=== PATIENT | male | born 1995 | race Hispanic/Latino ===

== ENCOUNTER 2018-08-24 18:39 | Emergency (ER) | payer SELFPAY ==
--- NOTE | 2018-08-24 20:19 | RAD REPORT ---
EXAM DESCRIPTION: RAD - Ankle Left 3 View -08/24/2018 8:11 pm CLINICAL HISTORY: Left ankle pain FINDINGS: No fracture or dislocation is seen.
--- NOTE | 2018-08-24 20:36 | RAD REPORT ---
EXAM DESCRIPTION: RAD - Shoulder Left 2 View - 08/24/2018 8:10 pm CLINICAL HISTORY: Left shoulder pain status post fall FINDINGS: No fracture or dislocation is seen.
--- NOTE | 2018-08-24 20:52 | EDPHYS ---
Physician Documentation [facility] Name: Shayne Blas Age: 23 yrs Sex: Male : 1995 Arrival Date: 08/24/2018 Time: 18:40 Bed 24 Private MD: Estuardo Alanis H ED Physician Deion Chen HPI: 08/24 20:55 This 23 yrs old Male presents to ER via Ambulatory with complaints of Fall kdr Injury, Shoulder Pain, Foot Pain. 20:55 Details of fall: The patient fell from an upright position, while standing, while kdr walking. Onset: The symptoms/episode began/occurred suddenly, yesterday. Associated injuries: The patient sustained Left shoulder and left ankle. Severity of symptoms: At their worst the symptoms were very mild, in the emergency department the symptoms are unchanged. The patient has not experienced similar symptoms in the past. The patient has not recently seen a physician. Historical: - Allergies: 19:27 No Known Allergies; aj - Home Meds: 19:27 None [Active]; aj - PMHx: 19:27 None; aj - PSHx: 19:27 None; aj - Immunization history: Last tetanus immunization: - up to date. - Social history:: Smoking status: Patient/guardian denies using tobacco. - Ebola Screening: : Patient negative for fever greater than or equal to 101.5 degrees Fahrenheit, and additional compatible Ebola Virus Disease symptoms Patient denies exposure to infectious person Patient denies travel to an Ebola-affected area in the 21 days before illness onset No symptoms or risks identified at this time. ROS: 20:55 Constitutional: Negative for fever, chills, and weight loss, Eyes: Negative for injury, kdr pain, redness, and discharge, Neck: Negative for injury, pain, and swelling, Cardiovascular: Negative for chest pain, palpitations, and edema, Respiratory: Negative for shortness of breath, cough, wheezing, and pleuritic chest pain, Abdomen/GI: Negative for abdominal pain, nausea, vomiting, diarrhea, and constipation, Back: Negative for injury and pain, : Negative for injury, bleeding, discharge, and swelling, Skin: Negative for injury, rash, and discoloration, Neuro: Negative for headache, weakness, numbness, tingling, and seizure activity. Psych: Negative for depression, anxiety, suicide ideation, homicidal ideation, and hallucinations, Allergy/Immunology: Negative for hives, rash, and allergies, Endocrine: Negative for neck swelling, polydipsia, polyuria, polyphagia, and marked weight changes, Hematologic/Lymphatic: Negative for swollen nodes, abnormal bleeding, and unusual bruising. 20:55 MS/extremity: Positive for Mild left lateral ankle swelling. The patient has been walking on it and is able to bear weight though with some discomfort. The left shoulder has minimal pain with abduction to 90 degrees or more. Exam: 20:55 Constitutional: This is a well developed, well nourished patient who is awake, alert, kdr and in no acute distress. Head/Face: Normocephalic, atraumatic. Eyes: Pupils equal round and reactive to light, extra-ocular motions intact. Lids and lashes normal. Conjunctiva and sclera are non-icteric and not injected. Cornea within normal limits. Periorbital areas with no swelling, redness, or edema. Chest/axilla: Normal chest wall appearance and motion. Nontender with no deformity. No lesions are appreciated. 20:55 Musculoskeletal/extremity: Left shoulder with minimal pain to anterior superior area with abduction to 90 degrees or more. The left ankle is also swollen laterally but intact ligaments. Vital Signs: 19:24 BP 143 / 80; Pulse 71; Resp 20; Temp 97.8; Pulse Ox 99% on R/A; Weight 95.25 kg; Height aj 5 ft. 10 in. (177.80 cm); 20:00 BP 138 / 72; Pulse 70; Resp 17; Pulse Ox 99% ; kr2 19:24 Body Mass Index 30.13 (95.25 kg, 177.80 cm) [place] Coma Score: 19:24 Eye Response: spontaneous(4). Verbal Response: oriented(5). Motor Response: obeys aj commands(6). Total: 15. Trauma Score (Adult): 19:24 Eye Response: spontaneous(1); Verbal Response: oriented(1); Motor Response: obeys aj commands(2); Systolic BP: > 89 mm Hg(4); Respiratory Rate: 10 to 29 per min(4); [place] Score: 15; Trauma Score: 12 MDM: 20:51 Patient medically screened. kdr 20:55 Data reviewed: vital signs, nurses notes, radiologic studies. Counseling: I had a kdr detailed discussion with the patient and/or guardian regarding: the historical points, exam findings, and any diagnostic results supporting the discharge/admit diagnosis, radiology results, the need for outpatient follow up. 08/24 19:28 Order name: XRAY Ankle LEFT 3 view; Complete Time: 20:45 aj 08/24 19:28 Order name: XRAY Shoulder LEFT 2 view; Complete Time: 20:45 aj 08/24 20:50 Order name: Nitesh wrap-joint: L:eft ankle; Complete Time: 20:50 kdr Administered Medications: No medications were administered Disposition: 08/24/18 20:51 Discharged to Home. Impression: Other slipping, tripping and stumbling and falls, Sprain of other ligament of left ankle, Sprain of unspecified ligament of left ankle, Pain in left shoulder. - Condition is Stable. - Discharge Instructions: Musculoskeletal Pain, Ankle Sprain, [id number], Shoulder Pain, [id number], Form - Return To Work. - Prescriptions for Tramadol 50 mg Oral Tablet - take 1 tablet by ORAL route every 8 hours as needed; 12 tablet. - Work release form, Medication Reconciliation Form, Thank You Letter form. - Follow up: Estuardo Alanis DO; When: 2 - 3 days; Reason: If symptoms return, Further diagnostic work-up, Recheck today's complaints, Continuance of care, Re-evaluation by your physician. - Problem is new. - Symptoms have improved. Signatures: Dispatcher [employer] EDPR Loreto Lerner RN RN aj Rittger, Kevin, MD MD kdr Reaves, Karey, RN RN kr2 Corrections: (The following items were deleted from the chart) 21:07 20:51 08/24/2018 20:51 Discharged to Home. Impression: Other slipping, tripping and kr2 stumbling and falls; Sprain of other ligament of left ankle; Sprain of unspecified ligament of left ankle; Pain in left shoulder. Condition is Stable. Forms are Medication Reconciliation Form, Thank You Letter, Antibiotic Education, Prescription Opioid Use. Follow up: Estuardo Alanis; When: 2 - 3 days; Reason: If symptoms return, Further diagnostic work-up, Recheck today's complaints, Continuance of care, Re-evaluation by your physician. Problem is new. Symptoms have improved. kdr
--- NOTE | 2018-08-24 20:52 | ER ---
Nurse's Notes [facility] Name: Shayne Blas Age: 23 yrs Sex: Male : 1995 Arrival Date: 08/24/2018 Time: 18:40 Bed 24 Private MD: Estuardo Alanis H Diagnosis: Other slipping, tripping and stumbling and falls;Sprain of other ligament of left ankle;Sprain of unspecified ligament of left ankle;Pain in left shoulder Presentation: 08/24 19:24 Presenting complaint: Patient states: Pain to left ankle and left shoulder after aj falling down 6 stairs. Ambulated with steady gait to triage. Care prior to arrival: None. Mechanism of Injury: Fall down 6 steps. Trauma event details: Injury occurred in the [facility], Injury occurred: at home. Injury occurred: August 24, 2018. 19:24 Acuity: HARRIETT 4 aj 19:24 Method Of Arrival: Ambulatory aj 20:00 Transition of care: patient was not received from another setting of care. Onset of kr2 symptoms was August 24, 2018. Risk Assessment: Do you want to hurt yourself or someone else? Patient reports no desire to harm self or others. Initial Sepsis Screen: Does the patient meet any 2 criteria? No. Patient's initial sepsis screen is negative. Does the patient have a suspected source of infection? No. Patient's initial sepsis screen is negative. Trauma Activation: Not Applicable Physician: ED Physician; Name: ; Notified At: ; Arrived At: Physician: General Surgeon; Name: ; Notified At: ; Arrived At: Physician: Radiology; Name: ; Notified At: ; Arrived At: Physician: Respiratory; Name: ; Notified At: ; Arrived At: Physician: Lab; Name: ; Notified At: ; Arrived At: Historical: - Allergies: 19:27 No Known Allergies; aj - Home Meds: 19:27 None [Active]; aj - PMHx: 19:27 None; aj - PSHx: 19:27 None; aj - Immunization history: Last tetanus immunization: - up to date. - Social history:: Smoking status: Patient/guardian denies using tobacco. - Ebola Screening: : Patient negative for fever greater than or equal to 101.5 degrees Fahrenheit, and additional compatible Ebola Virus Disease symptoms Patient denies exposure to infectious person Patient denies travel to an Ebola-affected area in the 21 days before illness onset No symptoms or risks identified at this time. Screenin:00 Abuse screen: Denies threats or abuse. Denies injuries from another. Nutritional kr2 screening: No deficits noted. Tuberculosis screening: No symptoms or risk factors identified. Fall Risk Fall in past 12 months (25 points). Primary Survey: 19:24 NO uncontrolled hemorrhage observed. Breathing/Chest: Respiratory pattern: regular, aj Respiratory effort: spontaneous, unlabored. Circulation: Skin color:. Disability Alert. 20:00 Exposure/Environment: There is no evidence of uncontrolled external bleeding. No kr2 obvious injuries are noted at this time. Reassessment Breathing/Chest Respiratory pattern Regular Respiratory effort Spontaneous Unlabored Breath sounds Clear Chest inspection Symmetrical. Assessment: 19:24 General: Appears in no apparent distress. comfortable, Behavior is calm, cooperative, aj appropriate for age. Pain: Complains of pain in anterior aspect of left shoulder, posterior aspect of left shoulder, left lateral ankle and anterior aspect of left ankle. Neuro: Level of Consciousness is awake, alert, obeys commands, Oriented to person, place, time, situation, Appropriate for age. Respiratory: Airway is patent Respiratory effort is even, unlabored, Respiratory pattern is regular, symmetrical. Derm: Skin is intact, is healthy with good turgor, Skin is pink, warm \T\ dry. normal. Musculoskeletal: Reports pain in anterior aspect of left shoulder, posterior aspect of left shoulder, left lateral ankle and anterior aspect of left ankle. 20:30 Reassessment: Patient appears in no apparent distress at this time. Patient and/or kr2 family updated on plan of care and expected duration. Pain level reassessed. Patient is alert, oriented x 3, equal unlabored respirations, skin warm/dry/pink. Patient states feeling better. Vital Signs: 19:24 BP 143 / 80; Pulse 71; Resp 20; Temp 97.8; Pulse Ox 99% on R/A; Weight 95.25 kg; Height aj 5 ft. 10 in. (177.80 cm); 20:00 BP 138 / 72; Pulse 70; Resp 17; Pulse Ox 99% ; kr2 19:24 Body Mass Index 30.13 (95.25 kg, 177.80 cm) aj Ivon Coma Score: 19:24 Eye Response: spontaneous(4). Verbal Response: oriented(5). Motor Response: obeys aj commands(6). Total: 15. Trauma Score (Adult): 19:24 Eye Response: spontaneous(1); Verbal Response: oriented(1); Motor Response: obeys aj commands(2); Systolic BP: > 89 mm Hg(4); Respiratory Rate: 10 to 29 per min(4); Palm Score: 15; Trauma Score: 12 ED Course: 18:40 Patient arrived in ED. sb2 18:41 Estuardo Alanis DO is Private Physician. sb2 19:25 Triage completed. aj 19:27 Arm band placed on right wrist. Patient placed in waiting room, Patient notified of aj wait time. 19:49 Deion Chen MD is Attending Physician. kdr 19:59 Miryam Pradhan, ALDO is Primary Nurse. kr2 20:00 Patient has correct armband on for positive identification. Bed in low position. Call kr2 light in reach. Side rails up X 1. Pulse ox on. NIBP on. Door closed. Warm blanket given. Head of bed elevated. 20:00 Patient maintains SpO2 saturation greater than 95% on room air. kr2 20:00 Thermoregulation: warm blanket given to patient. kr2 20:09 XRAY Ankle LEFT 3 view In Process Unspecified. EDMS 20:09 XRAY Shoulder LEFT 2 view In Process Unspecified. EDMS 20:50 Estuardo Alanis DO is Referral Physician. kdr 21:04 No provider procedures requiring assistance completed. Patient did not have IV access kr2 during this emergency room visit. 21:04 Nitesh wrap to left ankle. jp3 Administered Medications: No medications were administered Intake: 21:07 PO: 0ml; Total: 0ml. kr2 Output: 21:07 Urine: 0ml; Total: 0ml. kr2 Outcome: 20:00 Discharged to home ambulatory. kr2 20:00 Condition: good 20:00 Discharge instructions given to patient, Instructed on discharge instructions, follow up and referral plans. medication usage, Demonstrated understanding of instructions, follow-up care, medications, Prescriptions given X 1. 20:51 Discharge ordered by MD. kdr 21:07 Patient's length of stay was not longer than 2 hours. kr2 21:07 Patient left the ED. kr2 Signatures: Dispatcher [employer] EDMS Lerner, Loreto, RN RN aj Deion Chen MD MD kdr Miryam Pradhan RN RN kr2 Rosaura Briscoe2 Geraldo Kenny jp3
== END 2018-08-24 21:07 | disposition home or self-care (01) ==
LOC: ER 18:39
DX: S93.402A Sprain of unspecified ligament of left ankle, initial encounter (principal); M25.512 Pain in left shoulder; W10.8XXA Fall (on) (from) other stairs and steps, initial encounter
CPT/HCPCS: 99284

== ENCOUNTER 2019-07-01 21:24 | Emergency (ER) | payer SELFPAY ==
[2019-07-01] MEDS ORDERED: METHYLPREDNISOLONE 125 MG INJ ONE (22:11)
[2019-07-01] MEDS ORDERED: DIPHENHYDRAMINE 25 MG TAB/CAP ONE (22:16)
--- NOTE | 2019-07-01 22:41 | ER ---
Nurse's Notes [facility] Name: Shayne Blas Age: 23 yrs Sex: Male : 1995 Arrival Date: 07/01/2019 Time: 21:35 Bed 5 Private MD: Diagnosis: Dermatitis, unspecified Presentation: 07/01 21:36 Presenting complaint: Patient states: skin irritation, itching to bilateral lower legs ak1 for 1 week. Transition of care: patient was not received from another setting of care. Onset of symptoms is unknown. Risk Assessment: Do you want to hurt yourself or someone else? Patient reports no desire to harm self or others. Initial Sepsis Screen: Does the patient meet any 2 criteria? No. Patient's initial sepsis screen is negative. Does the patient have a suspected source of infection? No. Patient's initial sepsis screen is negative. Care prior to arrival: None. 21:36 Acuity: HARRIETT 4 ak1 21:36 Method Of Arrival: Ambulatory ak1 Triage Assessment: 21:38 General: Appears in no apparent distress. Behavior is cooperative, quiet. ak1 Historical: - Allergies: 21:38 No Known Allergies; ak1 - Home Meds: 21:38 None [Active]; ak1 - PMHx: 21:38 None; ak1 - PSHx: 21:38 None; ak1 - Immunization history:: Adult Immunizations unknown. - Social history:: Smoking status: Patient uses tobacco products, smokes one-half pack cigarettes per day, Patient uses alcohol, weekly. Patient/guardian denies using street drugs. - Ebola Screening: : No symptoms or risks identified at this time. Screenin:39 Abuse screen: Denies threats or abuse. Denies injuries from another. Nutritional lp1 screening: No deficits noted. Tuberculosis screening: No symptoms or risk factors identified. Fall Risk None identified. Assessment: 21:38 General: Appears in no apparent distress. Behavior is calm, cooperative, appropriate lp1 for age. Pain: Denies pain. Neuro: Level of Consciousness is awake, alert, obeys commands. Cardiovascular: Patient's skin is warm and dry. Respiratory: No deficits noted. GI: No deficits noted. : No deficits noted. EENT: No deficits noted. Derm: Rash noted that is itchy, red, raised, on bilateral lower legs. Musculoskeletal: No deficits noted. Vital Signs: 21:35 BP 146 / 110; Pulse 77; Resp 18; Temp 98.1; Pulse Ox 97% on R/A; Weight 90.72 kg (R); ak1 Height 5 ft. 10 in. (177.80 cm) (R); Pain 0/10; 21:35 Body Mass Index 28.70 (90.72 kg, 177.80 cm) ak1 ED Course: 21:35 Patient arrived in ED. bb 21:35 Arm band placed on Patient placed in an exam room, Patient notified of wait time. ak1 21:38 Denise Alvarez, RN is Primary Nurse. lp1 21:38 Triage completed. ak1 21:39 Patient has correct armband on for positive identification. lp1 21:39 No provider procedures requiring assistance completed. Patient did not have IV access lp1 during this emergency room visit. 22:05 Joe Franco MD is Attending Physician. tw4 Administered Medications: 22:21 Drug: SOLU-Medrol 125 mg Route: IM; Site: left deltoid; lp1 22:48 Follow up: Response: No adverse reaction lp1 22:22 Drug: Benadryl 50 mg Route: PO; lp1 22:48 Follow up: Response: No adverse reaction lp1 Outcome: 22:39 Discharge ordered by . tw4 22:48 Discharged to home ambulatory, with family. lp1 22:48 Condition: good 22:48 Discharge instructions given to patient, Instructed on discharge instructions, follow up and referral plans. medication usage, Demonstrated understanding of instructions, follow-up care, medications, Prescriptions given X 1. 22:49 Patient left the ED. lp1 Signatures: Analisa Pizano RN RN bb Denise Alvarez, RN RN lp1 Lisa Villagomez RN RN ak1 Joe Franco MD MD tw4
--- NOTE | 2019-07-01 22:41 | EDPHYS ---
Physician Documentation [facility] Name: Shayne Blas Age: 23 yrs Sex: Male : 1995 Arrival Date: 07/01/2019 Time: 21:35 Bed 5 Private MD: ED Physician Joe Franco HPI: 07/02 06:08 This 23 yrs old Male presents to ER via Ambulatory with complaints of rash. tw4 06:08 This 23 yrs old Male presents to ER via Ambulatory with complaints of rash. tw4 06:08 The patient's rash thought to be caused by allergies. The rash is located on the body tw4 diffusely. The rash can be described as papular. Onset: The symptoms/episode began/occurred last week. Associated signs and symptoms: Pertinent positives: itching, Pertinent negatives: None. The patient has not experienced similar symptoms in the past. Historical: - Allergies: 07/01 21:38 No Known Allergies; ak1 - Home Meds: 21:38 None [Active]; ak1 - PMHx: 21:38 None; ak1 - PSHx: 21:38 None; ak1 - Immunization history:: Adult Immunizations unknown. - Social history:: Smoking status: Patient uses tobacco products, smokes one-half pack cigarettes per day, Patient uses alcohol, weekly. Patient/guardian denies using street drugs. - Ebola Screening: : No symptoms or risks identified at this time. ROS: 07/02 06:08 Constitutional: Negative for fever, chills, and weight loss, Eyes: Negative for injury, tw4 pain, redness, and discharge, Cardiovascular: Negative for chest pain, palpitations, and edema, Respiratory: Negative for shortness of breath, cough, wheezing, and pleuritic chest pain, Abdomen/GI: Negative for abdominal pain, nausea, vomiting, diarrhea, and constipation, Back: Negative for injury and pain. Skin: Positive for rash. Exam: 06:08 Constitutional: This is a well developed, well nourished patient who is awake, alert, tw4 and in no acute distress. Head/Face: Normocephalic, atraumatic. Chest/axilla: Normal chest wall appearance and motion. Nontender with no deformity. No lesions are appreciated. Cardiovascular: Regular rate and rhythm with a normal S1 and S2. No gallops, murmurs, or rubs. Normal PMI, no JVD. No pulse deficits. Respiratory: Lungs have equal breath sounds bilaterally, clear to auscultation and percussion. No rales, rhonchi or wheezes noted. No increased work of breathing, no retractions or nasal flaring. Abdomen/GI: Soft, non-tender, with normal bowel sounds. No distension or tympany. No guarding or rebound. No evidence of tenderness throughout. Back: No spinal tenderness. No costovertebral tenderness. Full range of motion. MS/ Extremity: Pulses equal, no cyanosis. Neurovascular intact. Full, normal range of motion. Neuro: Awake and alert, GCS 15, oriented to person, place, time, and situation. Cranial nerves II-XII grossly intact. Motor strength 5/5 in all extremities. Sensory grossly intact. Cerebellar exam normal. Normal gait. 06:08 Skin: Appearance: normal except for affected area, contact dermatitis. Vital Signs: 07/01 21:35 BP 146 / 110; Pulse 77; Resp 18; Temp 98.1; Pulse Ox 97% on R/A; Weight 90.72 kg (R); ak1 Height 5 ft. 10 in. (177.80 cm) (R); Pain 0/10; 21:35 Body Mass Index 28.70 (90.72 kg, 177.80 cm) ak1 MDM: 22:05 Patient medically screened. tw4 07/02 06:08 Differential diagnosis: impetigo, varicella. Data reviewed: vital signs, nurses notes. tw4 Data interpreted: Pulse oximetry: Interpretation: normal. Counseling: I had a detailed discussion with the patient and/or guardian regarding: the historical points, exam findings, and any diagnostic results supporting the discharge/admit diagnosis. Special discussion: I discussed with the patient/guardian in detail that at this point there is no indication for admission to the hospital. It is understood, however, that if the symptoms persist or worsen the patient needs to return immediately for re-evaluation. Administered Medications: 07/01 22:21 Drug: SOLU-Medrol 125 mg Route: IM; Site: left deltoid; lp1 22:48 Follow up: Response: No adverse reaction lp1 22:22 Drug: Benadryl 50 mg Route: PO; lp1 22:48 Follow up: Response: No adverse reaction lp1 Disposition: 07/01/19 22:39 Discharged to Home. Impression: Dermatitis, unspecified. - Condition is Stable. - Discharge Instructions: Rash. - Prescriptions for Medrol (Jay) 4 mg Oral Tablets, Dose Pack - take 1 tablet by ORAL route as directed - follow package instructions; 1 packet. - Medication Reconciliation Form, Thank You Letter, Antibiotic Education, Prescription Opioid Use form. - Follow up: Private Physician; When: Upon discharge from the Emergency Department; Reason: Recheck today's complaints, Continuance of care. - Problem is new. - Symptoms have improved. Signatures: Denise Alvarez, RN RN lp1 Lisa Villagomez RN RN ak1 Joe Franco MD MD tw4 Corrections: (The following items were deleted from the chart) 22:49 22:39 07/01/2019 22:39 Discharged to Home. Impression: Dermatitis, unspecified. lp1 Condition is Stable. Forms are Medication Reconciliation Form, Thank You Letter, Antibiotic Education, Prescription Opioid Use. Follow up: Private Physician; When: Upon discharge from the Emergency Department; Reason: Recheck today's complaints, Continuance of care. Problem is new. Symptoms have improved. tw4
[2019-07-02 00:30] VITALS: BP 146/110; TEMP 98.1; O2SAT 97
== END 2019-07-01 22:49 | disposition home or self-care (01) ==
LOC: ER 21:24
DX: L30.9 Dermatitis, unspecified (principal); F17.210 Nicotine dependence, cigarettes, uncomplicated
CPT/HCPCS: 96372; 99283; J2930

== ENCOUNTER 2019-07-14 20:08 | Emergency (ER) | payer SELFPAY ==
[2019-07-14 21:18] LABS: Absolute Lymphocytes (CBC) 2.5 K/uL (0.7-4.9); Basophils % 0.5 % (0-1.3); Hematocrit 47.8 % (39.6-49.0); Lymphocytes % 18.9 % (15.3-44.8); MPV 7.5 fL (7.6-11.3); RBC Red Blood Cell Count 5.19 M/uL (4.33-5.43)
[2019-07-14 21:30] LABS: BUN Blood Urea Nitrogen 13 mg/dL (7-18); Bicarbonate 27 mmol/L (21-32); Glucose Level 93 mg/dL (74-106); Sodium Level 137 mmol/L (136-145)
--- NOTE | 2019-07-14 21:34 | EDPHYS ---
Physician Documentation [facility] Name: Shayne Blas Age: 24 yrs Sex: Male : 1995 Arrival Date: 07/14/2019 Time: 20:08 Bed 13 Private MD: ED Physician Tommy Teresa HPI: 07/14 20:43 This 24 yrs old Male presents to ER via Ambulatory with complaints of Anxiety. rn 20:43 The patient has shortness of breath at rest. Onset: The symptoms/episode began/occurred rn just prior to arrival. Duration: The symptoms are continuous, but are markedly better than the original presentation. The patient's shortness of breath is aggravated by nothing, is alleviated by nothing. Severity of symptoms: At their worst the symptoms were moderate in the emergency department the symptoms have improved. The patient has not experienced similar symptoms in the past. Reports was worrying about his health, states thinks has sleep apnea and was thinking about whether he would stop breathing at night, hasn't had a chance to see a physician, also smokes, got worried and felt like had an anxiety attack, has never had one like this, felt sob. Lasted about 2-3 minutes, resolved with deep breathing and trying to calm himself. No meds. Now at baseline. No famhx of early cardiac problems.. Historical: - Allergies: 20:27 No Known Allergies; aj1 - Home Meds: 20:27 None [Active]; aj1 - PMHx: 20:27 None; aj1 - PSHx: 20:27 None; aj1 - Immunization history:: Flu vaccine is not up to date. - Social history:: Smoking status: Patient uses tobacco products, smokes one pack cigarettes per day. - Ebola Screening: : Patient denies travel to an Ebola-affected area in the 21 days before illness onset. - Family history:: not pertinent. - Hospitalizations: : No recent hospitalization is reported. ROS: 20:43 Constitutional: Negative for fever, chills, and weight loss, Eyes: Negative for injury, rn pain, redness, and discharge, Neck: Negative for injury, pain, and swelling, Cardiovascular: Negative for chest pain, palpitations, and edema, Respiratory: Negative for cough, wheezing, and pleuritic chest pain, Abdomen/GI: Negative for abdominal pain, nausea, vomiting, diarrhea, and constipation, MS/Extremity: Negative for injury and deformity, Skin: Negative for injury, rash, and discoloration, Neuro: Negative for headache, weakness, numbness, tingling, and seizure. Exam: 20:43 Constitutional: This is a well developed, well nourished patient who is awake, alert, rn and in no acute distress. Head/Face: Normocephalic, atraumatic. Eyes: Pupils equal round and reactive to light, extra-ocular motions intact. Lids and lashes normal. Conjunctiva and sclera are non-icteric and not injected. Cornea within normal limits. Periorbital areas with no swelling, redness, or edema. ENT: No oral swelling Cardiovascular: Regular rate and rhythm with a normal S1 and S2. No gallops, murmurs, or rubs. Normal PMI, no JVD. No pulse deficits. Respiratory: Lungs have equal breath sounds bilaterally, clear to auscultation. No increased work of breathing, no retractions or nasal flaring. Abdomen/GI: Soft, non-tender MS/ Extremity: Pulses equal, no cyanosis. Neurovascular intact. Full, normal range of motion. Equal circumference. Neuro: Awake and alert, GCS 15, oriented to person, place, time, and situation. Cranial nerves II-XII grossly intact. Motor strength 5/5 in all extremities. Sensory grossly intact. Cerebellar exam normal. Normal gait. 21:11 ECG was reviewed by the Attending Physician. rn Vital Signs: 20:27 BP 163 / 94; Pulse 93; Resp 18; Temp 97.8; Pulse Ox 100% on R/A; Weight 90.72 kg (R); aj1 Height 5 ft. 10 in. (177.80 cm) (R); Pain 5/10; 21:31 BP 122 / 91; Pulse 87; Temp 98.4; Pulse Ox 98% ; ch2 20:27 Body Mass Index 28.70 (90.72 kg, 177.80 cm) aj1 MDM: 20:36 Patient medically screened. rn 21:31 Differential diagnosis: Anxiety Reaction Pneumothorax pulmonary edema, reactive airway rn disease. Data reviewed: vital signs, nurses notes, lab test result(s), EKG, radiologic studies, plain films, and as a result, I will discharge patient. Test interpretation: by ED physician or midlevel provider: ECG, plain radiologic studies, CXR negative for pneumothorax or acute infiltrate. Counseling: I had a detailed discussion with the patient and/or guardian regarding: the historical points, exam findings, and any diagnostic results supporting the discharge/admit diagnosis, lab results, radiology results, the need for outpatient follow up, to return to the emergency department if symptoms worsen or persist or if there are any questions or concerns that arise at home. Response to treatment: the patient's symptoms have resolved after treatment, the patient's condition has returned to base line, the patient is now symptom free, and as a result, I will discharge patient. Special discussion: I discussed with the patient/guardian in detail that at this point there is no indication for admission to the hospital. It is understood, however, that if the symptoms persist or worsen the patient needs to return immediately for re-evaluation. Based on the history and exam findings, there is no indication for further emergent testing or inpatient evaluation. I discussed with the patient/guardian the need to see the primary care provider for further evaluation of the symptoms. ED course: Recommend cessation of smoking and f/u with pcp/pulmonology for sleep study.. 07/14 20:42 Order name: CBC with Diff; Complete Time: 21:27 07/14 20:42 Order name: Basic Metabolic Panel; Complete Time: 21:31 07/14 20:42 Order name: XRAY Chest (1 view) 07/14 20:42 Order name: EKG; Complete Time: 20:43 07/14 20:42 Order name: EKG - Nurse/Tech; Complete Time: 21:10 07/14 20:42 Order name: IV Start; Complete Time: 21:04 rn EC:11 Rate is 74 beats/min. Rhythm is regular. QRS [place] is Normal. [place] interval is normal. QRS rn interval is normal. QT interval is normal. No Q waves. T waves are Normal. No ST changes noted. Clinical impression: Normal ECG. Interpreted by me. Reviewed by me. Administered Medications: No medications were administered Disposition: 07/14/19 21:32 Discharged to Home. Impression: Panic disorder [episodic paroxysmal anxiety] without agoraphobia, Sleep apnea, unspecified. - Condition is Stable. - Discharge Instructions: Panic Attacks, Sleep Studies. - Medication Reconciliation Form, Thank You Letter, Antibiotic Education, Prescription Opioid Use form. - Follow up: Private Physician; When: As needed; Reason: Recheck today's complaints, Re-evaluation by your physician. - Problem is new. - Symptoms have improved. Signatures: Dispatcher [employer] EDLiz Chase RN RN aj1 Tommy Teresa MD MD rn Hanna, Candace, RN RN ch2 Corrections: (The following items were deleted from the chart) 21:59 21:32 07/14/2019 21:32 Discharged to Home. Impression: Panic disorder [episodic ch2 paroxysmal anxiety] without agoraphobia; Sleep apnea, unspecified. Condition is Stable. Forms are Medication Reconciliation Form, Thank You Letter, Antibiotic Education, Prescription Opioid Use. Follow up: Private Physician; When: As needed; Reason: Recheck today's complaints, Re-evaluation by your physician. Problem is new. Symptoms have improved. rn
--- NOTE | 2019-07-14 21:34 | ER ---
Nurse's Notes [facility] Name: Shayne Blas Age: 24 yrs Sex: Male : 1995 Arrival Date: 07/14/2019 Time: 20:08 Bed 13 Private MD: Diagnosis: Panic disorder [episodic paroxysmal anxiety] without agoraphobia;Sleep apnea, unspecified Presentation: 07/14 20:26 Presenting complaint: Patient states: "I feel like I was having an anxiety attack aj1 earlier. My hands and face were tingling and it felt like I couldn't catch my breath. My mom told me to come to the hospital" Patient reports that he is feeling better now. Transition of care: patient was not received from another setting of care. Onset of symptoms was 2018. Risk Assessment: Do you want to hurt yourself or someone else? Patient reports no desire to harm self or others. Initial Sepsis Screen: Does the patient meet any 2 criteria? No. Patient's initial sepsis screen is negative. Does the patient have a suspected source of infection? No. Patient's initial sepsis screen is negative. Care prior to arrival: None. 20:26 Method Of Arrival: Ambulatory aj1 20:26 Acuity: HARRIETT 4 aj1 Triage Assessment: 20:27 General: Appears in no apparent distress. comfortable, Behavior is calm, cooperative, aj1 appropriate for age. Pain: Complains of pain in chest Pain currently is 4 out of 10 on a pain scale. Neuro: Level of Consciousness is awake, alert, obeys commands. Cardiovascular: Patient's skin is warm and dry. Respiratory: Airway is patent Respiratory effort is even, unlabored, Respiratory pattern is regular, symmetrical. Historical: - Allergies: 20:27 No Known Allergies; aj1 - Home Meds: 20:27 None [Active]; aj1 - PMHx: 20:27 None; aj1 - PSHx: 20:27 None; aj1 - Immunization history:: Flu vaccine is not up to date. - Social history:: Smoking status: Patient uses tobacco products, smokes one pack cigarettes per day. - Ebola Screening: : Patient denies travel to an Ebola-affected area in the 21 days before illness onset. - Family history:: not pertinent. - Hospitalizations: : No recent hospitalization is reported. Screenin:30 Abuse screen: Denies threats or abuse. Denies injuries from another. Nutritional ch2 screening: No deficits noted. Tuberculosis screening: No symptoms or risk factors identified. Fall Risk None identified. Assessment: 20:45 General: Appears in no apparent distress. comfortable, Behavior is calm, cooperative, ch2 appropriate for age. Pain: Denies pain. Neuro: Level of Consciousness is awake, alert, obeys commands, Oriented to person, place, time, situation, Appropriate for age. Cardiovascular: Heart tones S1 S2. Respiratory: Airway is patent Respiratory effort is even, unlabored, Respiratory pattern is regular, symmetrical, Breath sounds are clear bilaterally. GI: Abdomen is flat, non-distended. : No signs and/or symptoms were reported regarding the genitourinary system. EENT: No signs and/or symptoms were reported regarding the EENT system. Derm: Skin is intact. Musculoskeletal: Circulation, motion, and sensation intact. 21:31 Reassessment: Patient appears in no apparent distress at this time. No changes from [facility] previously documented assessment. Patient and/or family updated on plan of care and expected duration. Pain level reassessed. Patient is alert, oriented x 3, equal unlabored respirations, skin warm/dry/pink. Patient denies pain at this time. Vital Signs: 20:27 BP 163 / 94; Pulse 93; Resp 18; Temp 97.8; Pulse Ox 100% on R/A; Weight 90.72 kg (R); aj1 Height 5 ft. 10 in. (177.80 cm) (R); Pain 5/10; 21:31 BP 122 / 91; Pulse 87; Temp 98.4; Pulse Ox 98% ; ch2 20:27 Body Mass Index 28.70 (90.72 kg, 177.80 cm) aj1 ED Course: 20:08 Patient arrived in ED. ds1 20:27 Triage completed. aj1 20:27 Arm band placed on Patient placed in an exam room. aj1 20:36 Tommy Teresa MD is Attending Physician. rn 20:45 Patient has correct armband on for positive identification. Bed in low position. Call [facility] light in reach. Side rails up X 1. Pulse ox on. NIBP on. 21:19 Initial lab(s) drawn, by ED staff, sent to lab. Inserted saline lock: 20 gauge in right ch2 antecubital area, using aseptic technique. 21:20 XRAY Chest (1 view) In Process Unspecified. EDMS 21:25 Tracy Apple is Primary Nurse. 21:57 No provider procedures requiring assistance completed. IV discontinued, intact, ch2 bleeding controlled, No redness/swelling at site. Administered Medications: No medications were administered Outcome: 21:32 Discharge ordered by . rn 21:50 Discharged to home ambulatory, with family. ch2 21:50 Condition: stable 21:50 Discharge instructions given to patient, family, Instructed on discharge instructions, follow up and referral plans. POC Anxiety Demonstrated understanding of instructions, follow-up care, POC Anxiety 21:59 Patient left the ED. ch2 Signatures: Dispatcher [employer] EDVT Liz Carvalho RN RN aj1 Maribel Beualieu ds1 Tommy Teresa MD MD rn Habalo, Winsy Theresa Villareal RN RN ch2
[2019-07-14 22:56] VITALS: BP 122/91; TEMP 98.4; O2SAT 98
--- NOTE | 2019-07-15 07:05 | EKG ---
Test Date: 2019-07-14 Test Time: 21:08:41 Perishable Fruit Inspector: VIVEK MEASUREMENT RESULTS: Intervals: Rate: 74 [place]: 150 QRSD: 80 QT: 350 QTc: 388 [place]: P: 50 [place]: 150 QRS: 75 T: 67 INTERPRETIVE STATEMENTS: Normal sinus rhythm Normal ECG No previous ECG available for comparison Electronically Signed On 07-15-19 07:04:50 OIL SPOT WASHER by Peter Lala
--- NOTE | 2019-07-15 09:05 | RAD REPORT ---
EXAM DESCRIPTION: RAD - Chest Single View - 07/14/2019 9:20 pm CLINICAL HISTORY: Dyspnea COMPARISON: None. TECHNIQUE: AP portable chest image was obtained 7 hours . FINDINGS: No dense consolidation. Faint stranding in the left lung base is potentially an early infi ltrate of the patient has localizing symptoms. Heart and vasculature are normal. No measurable pleural effusion and no pneumothorax. No acute bony abnormality seen. No acute aortic findings suspected. IMPRESSION: Baseline examination showing faint stranding in the left base when compared to the right . Early infiltrate is not excluded. No dense consolidation.
== END 2019-07-14 21:59 | disposition home or self-care (01) ==
LOC: ER 20:08
DX: F41.0 Panic disorder [episodic paroxysmal anxiety] (principal); G47.30 Sleep apnea, unspecified; F17.210 Nicotine dependence, cigarettes, uncomplicated
CPT/HCPCS: 36415; 71045; 80048; 85025; 93005; 99284

== ENCOUNTER 2019-12-23 | Emergency (ER) | payer BC, SELFPAY | END 2019-12-23 18:33 | disposition home or self-care (01) | CPT/HCPCS: 81003; 99284 ==